=== PATIENT | female | born 1960 | race Caucasian/White ===

== ENCOUNTER → 2017-12-05 | Outpatient (CLI) | payer BC ==
--- NOTE | 2017-12-05 18:07 | Diagnostic Imaging Report ---
#[id number] - MGDXBIL #BILATERAL DIGITAL DIAGNOSTIC MAMMOGRAM WITH CAD: 12/05/2017 Comparison is made to exams dated: 02/01/2017 mammogram and 09/04/2015 mammogram - [facility]. Current study contains 6 films. The breasts are extremly dense which may obscure a lesion. Current study was also evaluated with a Computer Aided Detection (CAD) system. There is an amorphous calcification in the right breast at 1 o'clock middle depth. A biopsy has been recommended but the patient elects to follow these calcifications and would like a second opinion. Scattered calcifications in the left breast. No other significant masses, calcifications, or other findings are seen in either breast. IMPRESSION: PROBABLY BENIGN The amorphous calcification in the right breast is probably benign. A follow-up mammogram in 6 months is recommended to demonstrate stability. These findings were discussed in detail with the patient. Gus Blue Jr., D.O. cw/:12/05/2017 11:49:05 Major Account Manager: Karyna URIAS)([place]), [facility] letter sent: Followup Recommended Mammogram BI-RADS: 3 Probably benign
== END ==
LOC: MAMMO 08:41
PROVIDERS: ATTEND Family Medicine
DX: R92.8 Other abnormal and inconclusive findings on diagnostic imaging of breast (principal); R92.1 Mammographic calcification found on diagnostic imaging of breast; R92.2 Inconclusive mammogram
CPT/HCPCS: 77066

== ENCOUNTER → 2018-07-05 | Outpatient (CLI) | payer BC | LOC: MAMMO 08:25 | PROVIDERS: ATTEND Family Medicine | DX: R92.8 Other abnormal and inconclusive findings on diagnostic imaging of breast (principal) ==

== ENCOUNTER → 2019-01-10 | Outpatient (CLI) | payer BC ==
--- NOTE | 2019-01-14 09:29 | Diagnostic Imaging Report ---
#[id number] - MGDXBIL #BILATERAL DIGITAL DIAGNOSTIC MAMMOGRAM WITH CAD: 01/10/2019 Comparison is made to exams dated: 07/05/2018 mammogram, 12/05/2017 mammogram - [facility], 02/01/2017 mammogram and 09/04/2015 mammogram - [facility]. Current study contains 9 films. The tissue of both breasts is extremely dense, which lowers the sensitivity of mammography. Current study was also evaluated with a Computer Aided Detection (CAD) system. There are stable grouped amorphous calcifications in the right breast at 2 o'clock posterior depth, unchanged since 2016. No other significant masses, calcifications, or other findings are seen in either breast. IMPRESSION: BENIGN There is no mammographic evidence of malignancy. A 1 year screening mammogram is recommended. The patient will be notified by letter of the results. DMITRI AMOS M.D. Additional Observers: DMITRI AMOS M.D. ct/:01/10/2019 15:16:26 Regional Facilities Manager: Karyna URIAS)([place]), [facility] letter sent: Normal Exam Mammogram BI-RADS: 2 Benign
== END ==
LOC: MAMMO 12:45
PROVIDERS: ATTEND Family Medicine
DX: R92.8 Other abnormal and inconclusive findings on diagnostic imaging of breast (principal)
CPT/HCPCS: 77066

== ENCOUNTER → 2020-08-06 | Outpatient (CLI) | payer BC | LOC: MAMMO 10:55 | PROVIDERS: ATTEND Family Medicine | DX: Z12.31 Encounter for screening mammogram for malignant neoplasm of breast (principal) | CPT/HCPCS: 77067 ==

== ENCOUNTER → 2021-10-28 | Outpatient (CLI) | payer BC | LOC: MAMMO 08:59 | PROVIDERS: ATTEND Family Medicine | DX: Z12.31 Encounter for screening mammogram for malignant neoplasm of breast (principal) | CPT/HCPCS: 77067 ==